=== PATIENT | female | born 1945 | race Caucasian/White ===

== ENCOUNTER 2024-08-20 20:21 | Emergency (ER) | payer MEDICARE, BC ==
[2024-08-20 20:30] VITALS: TEMP 98
[2024-08-20] MEDS: ACETAMINOPHEN TAB 500 MG TAB PO STA (21:27)
--- NOTE | 2024-08-20 21:51 | CT ---
EXAMINATION TYPE: CT brain cspine wo con CT DLP: mGycm, Automated exposure control for dose reduction was used. DATE OF EXAM: 08/20/2024 9:32 PM COMPARISON: None. CLINICAL INDICATION:Female, 79 years old with history of fall, head injury; TECHNIQUE: Brain: Multiple axial CT images of the brain were obtained without IV contrast. Cspine: Axial CT images from the skull base to the inferior aspect of T2 we obtained without intraven ous contrast. Coronal and sagittal reformatted images were also reviewed. FINDINGS: Brain: Extra-axial spaces: Trace subdural blood products are seen layering along the posterior falx. Ventricular system: Within normal limits Cerebral parenchyma: Cerebral atrophy. No acute intraparenchymal hemorrhage or mass effect. Multiple remote bilateral infarcts with encephalomalacia involving the supratentorial white matter. Remote ri ght cerebellar hemisphere infarct. Scattered hypoattenuating areas are seen within the white matter. Mass effect: No evidence of midline shift. Intracranial vasculature: Atherosclerotic calcifications of the intracranial vessels. Soft tissues: Left parietal soft tissue edema. Calvarium/osseous structures: No depressed skull fracture. Paranasal sinuses and mastoid air cells: Clear. Visualized orbits: Orbital contents are intact. Cervical spine: Fracture: None. Osseous structures: Multilevel degenerative disc disease changes with endplate spurring and disc oste ophyte complex's. Vertebral alignment: There is reversal of normal cervical lordotic curve Spinal canal/Neural Foramina: No evidence of significant spinal canal narrowing. Neck soft tissues: Prevertebral soft tissues are within normal limits. Other: The airway is patent. The lung apices are clear. IMPRESSION: CT brain: 1. Trace acute subdural blood products layering along the posterior falx. 2. Multiple remote supratentorial and right cerebellar hemisphere infarcts. CT cervical spine: 1. No evidence of cervical spine fracture. 2. Moderate multilevel degenerative disc disease. Findings were called to and discussed with ordering provider Betito on 08/20/2024 at [address] Velasco. [facility], , 08/20/2024 9:48 PM
--- NOTE | 2024-08-20 21:52 | XR ---
EXAMINATION TYPE: XR knee limited LT DATE OF EXAM: 08/20/2024 9:45 PM CLINICAL INDICATION:Female, 79 years old with history of fall, pain; [facility] COMPARISON: None. TECHNIQUE: The Left knee(s) was examined in Frontal, lateral and oblique projections. FINDINGS: No evidence of any acute osseous pathology, soft tissue swelling, or joint effusion is no astrid. Tricompartmental osteophyte formation involving the femoral condyles, tibial plateau and patella. Mo derate joint space narrowing. IMPRESSION: 1. No acute osseous pathology. 2. 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 [facility], , 08/20/2024 9:50 PM
--- NOTE | 2024-08-20 21:53 | XR ---
EXAMINATION TYPE: XR ankle limited RT DATE OF EXAM: 08/20/2024 9:45 PM CLINICAL INDICATION:Female, 79 years old with history of fall, pain; [facility] COMPARISON: None TECHNIQUE: The right ankle is imaged in frontal, lateral and oblique projections. FINDINGS: There is no evidence of acute osseous pathology. The joint spaces are well-preserved without evidenc e of subluxation or dislocation. Kager's fat pad is intact. Degenerative changes of the subtalar join t are appreciated. No radiopaque foreign bodies are identified. IMPRESSION: No evidence of acute fracture. [facility], , 08/20/2024 9:51 PM
--- NOTE | 2024-08-20 21:58 | XR ---
EXAMINATION TYPE: XR pelvis AP view DATE OF EXAM: 08/20/2024 9:52 PM CLINICAL INDICATION:Female, 79 years old with history of fall, pain; [facility] COMPARISON: None TECHNIQUE: The pelvis was examined in a single projection. FINDINGS: There is no evidence of fracture or dislocation. There is no soft tissue abnormality. No a bnormal calcifications are present. Right hip prosthesis is present and intact. IMPRESSION: No acute osseous pathology. [facility], , 08/20/2024 9:55 PM
--- NOTE | 2024-08-20 22:23 | ED ---
Fall HPI - General Chief Complaint: Fall Stated Complaint: Fall, Head Injury Time Seen by Provider: 08/20/24 20:25 Source: EMS Mode of arrival: EMS - History of Present Illness Initial Comments: 79-year-old female who presents to the emergency department from [facility] for fall out of her wheelchair. Patient has a history of CVA. She has significant contractures of her upper extremities and is wheelchair-bound. She has significant expressive aphasia. Patient hit the left side of her face on the ground and sustained a intraoral laceration. There was no reported loss of consciousness. She takes a full dose aspirin for her history of stroke. Patient was complaining of right ankle pain and some possible right wrist pain. History is difficult to obtain due to the patient's advanced speech deficit. Family at bedside states that she appears to be at her baseline. No report of any vomiting. HPI is limited. - Related Data Allergies Allergy/AdvReac Type Severity Reaction Status Date / Time latex AdvReac Itching Verified 08/20/24 20:31 Review of Systems ROS Statement: Those systems with pertinent positive or pertinent negative responses have been documented in the HPI. ROS Other: All systems not noted in ROS Statement are negative. Past Medical History History of Any Multi-Drug Resistant Organisms: None Reported Past Psychological History: No Psychological Hx Reported Past Alcohol Use History: None Reported Past Drug Use History: None Reported General Exam Limitations: physical limitation General appearance: alert, in no apparent distress Eye exam: Present: normal appearance, PERRL, EOMI. Absent: scleral icterus, conjunctival injection, periorbital swelling ENT exam: Present: other (Intraoral lip laceration measuring 1 cm on the inside of the left upper lip) Neck exam: Present: tenderness (Midline). Absent: meningismus, lymphadenopathy Respiratory exam: Present: normal lung sounds bilaterally. Absent: respiratory distress, wheezes, rales, rhonchi, stridor Cardiovascular Exam: Present: regular rate, normal rhythm, normal heart sounds. Absent: systolic murmur, diastolic murmur, rubs, gallop, clicks GI/Abdominal exam: Present: soft, normal bowel sounds. Absent: distended, tenderness, guarding, rebound, rigid Extremities exam: Present: other (Tenderness and swelling to the right ankle) Neurological exam: Present: other (Expressive aphasia, contractures of bilateral upper extremities.) Psychiatric exam: Present: flat affect Skin exam: Present: warm, dry, normal color, abrasion (To the left knee). Absent: rash Course Vital Signs 08/20/24 08/20/24 20:24 22:22 Temperature 98 F Pulse Rate 95 93 Respiratory 17 20 Rate Blood Pressure 109/71 99/62 O2 Sat by Pulse 93 L 95 Oximetry Medical Decision Making - Medical Decision Making Was pt. sent in by a medical professional or institution (, JENNIFER, [employer] SUPERVISOR, urgent care, hospital, or prison...) When possible be specific @ -Patient was sent in from [facility] Did you speak to anyone other than the patient for history (EMS, parent, family, police, friend...)? What history was obtained from this source @ -Spoke with EMS for history Did you review nursing and triage notes (agree or disagree)? Why? @ -I reviewed and agree with nursing and triage notes Were old charts reviewed (outside hosp., previous admission, EMS record, old EKG, old radiological studies, urgent care reports/EKG's, prison records)? Report findings @ -No old charts were reviewed Differential Diagnosis (chest pain, altered mental status, abdominal pain women, abdominal pain men, vaginal bleeding, weakness, fever, dyspnea, syncope, headache, dizziness, GI bleed, back pain, seizure, CVA, palpatations, mental health, musculoskeletal)? @ -Subdural, subarachnoid, cervical fracture EKG interpreted by me (3pts min.). @ -Yes and demonstrates sinus rhythm with a rate of 96. DE interval 200. QRS 84. QTc of 424. No acute ST segment elevations or depressions X-rays interpreted by me (1pt min.). @ -Yes and demonstrates no acute fractures CT interpreted by me (1pt min.). @ -Yes and demonstrates acute subdural U/S interpreted by me (1pt. min.). @ -None done What testing was considered but not performed or refused? (CT, X-rays, U/S, labs)? Why? @ -None What meds were considered but not given or refused? Why? @ -Platelets were considered Did you discuss the management of the patient with other professionals (professionals i.e. , JENNIFER, [employer] SUPERVISOR, lab, RT, psych nurse, licensed social worker, panel raiser operator, teacher, aeronautical engineering officer, pillowcase cleaner)? Give summary @ -Spoke with Dr. Dai at [facility] Was smoking cessation discussed for >3mins.? @ -No Was critical care preformed (if so, how long)? @ -Yes, 35 minutes for identification of intracranial bleed Were there social determinants of health that impacted care today? How? (Homelessness, low income, unemployed, alcoholism, drug addiction, transportation, low edu. Level, literacy, decrease access to med. care, assisted, rehab)? @ -No Was there de-escalation of care discussed even if they declined (Discuss DNR or withdrawal of care, Hospice)? DNR status @ -Yes however family wants the patient to remain a full code What co-morbidities impacted this encounter? (DM, HTN, Smoking, COPD, CAD, Cancer, CVA, ARF, Chemo, Hep., AIDS, mental health diagnosis, sleep apnea, morbid obesity)? @ -CVA with expressive aphasia Was patient admitted / discharged? Hospital course, mention meds given and route, prescriptions, significant lab abnormalities, going to OR and other pertinent info. @ -Upon arrival patient seen and evaluated in room 24. Thorough history and physical exam was performed. Patient does have identifiable facial injury. Laceration is intraoral and no bleeding at this time. Does not require repair. Unknown if the patient hit her head but she is complaining of neck pain therefore I performed a CT of the brain and cervical spine. X-rays were performed of the patient's knee and ankle. I did speak with the radiologist in regards to the CT read which shows an acute subdural. This is discussed with family. They request that the patient remain a full code. Informed them that this would require transfer to a facility with neurosurgical capabilities for which they were agreeable. Called and spoke with Dr. Dai who is the acce pting trauma surgeon at [facility]. Patient will be transferred in stable condition. COBRA forms are signed Undiagnosed new problem with uncertain prognosis? @ -No Drug Therapy requiring intensive monitoring for toxicity (Heparin, Nitro, Insulin, Cardizem)? @ -No Were any procedures done? @ -No Diagnosis/symptom? @ -Acute fall from wheelchair, acute subdural hemorrhage Acute, or Chronic, or Acute on Chronic? @ -Acute Uncomplicated (without systemic symptoms) or Complicated (systemic symptoms)? @ -Complicated Side effects of treatment? @ -No Exacerbation, Progression, or Severe Exacerbation? @ -No Poses a threat to life or bodily function? How? (Chest pain, USA, ID, pneumonia, PE, COPD, DKA, ARF, appy, cholecystitis, CVA, Diverticulitis, Homicidal, Suicidal, threat to staff... and all critical care pts) @ -Yes as patient has intracranial bleed Disposition Clinical Impression: Fall, Blunt head trauma, Subdural hemorrhage, Right ankle pain Disposition: OTHER INSTITUTION NOT DEFINED Condition: Serious Is patient prescribed a controlled substance at d/c from ED?: No Referrals: Shawn Rosenthal MD [Primary Care Provider] - 1-2 days Time of Disposition: 22:45 - Out of Hospital Transfer - Req. Specs Out of Hospital Transfer - Requested Specifics: Other Emergency Center ([facility])
[2024-08-20 23:13] LABS: ALT 15 U/L (4-34); African American GFR (CKD) >90 (>60 ml/min/1.73 sqM); Albumin 4.4 g/dL (3.5-5.0); Anion Gap 9 mmol/L; Blood Urea Nitrogen 18 mg/dL (7-17); Calcium 9.3 mg/dL (8.4-10.2); Carbon Dioxide 20 mmol/L (22-30); Chloride 111 mmol/L (98-107); Glucose 110 mg/dL (74-99); Non-African American GFR(CKD) 87 (>60 ml/min/1.73 sqM); Sodium 140 mmol/L (137-145); Total Bilirubin 0.9 mg/dL (0.2-1.3); Total Protein 7.3 g/dL (6.3-8.2)
[2024-08-20 23:14] LABS: AST 24 U/L (14-36); Potassium 4.6 mmol/L (3.5-5.1)
[2024-08-20 23:15] LABS: Alkaline Phosphatase 97 U/L (38-126)
[2024-08-20 23:18] VITALS: BP 107/71; PULSE 102; RESP 17
[2024-08-20 23:49] LABS: Basophils # (A) 0.1 k/uL (0-0.2); Basophils % (A) 1 %; Eosinophils # (A) 0.1 k/uL (0-0.7); Eosinophils % (A) 1 %; HGB 15.5 gm/dL (11.4-16.0); Lymphocytes # (A) 1.5 k/uL (1.0-4.8); Lymphocytes % (A) 10 %; MCHC 32.4 g/dL (31.0-37.0); MCV 95.8 fL (80.0-100.0); Mean Platelet Volume 9.8; Monocytes # (A) 0.9 k/uL (0-1.0); Monocytes % (A) 6 %; Neutrophils # (A) 11.9 k/uL (1.3-7.7); Neutrophils % (A) 81 %; Platelet Count 354 k/uL (150-450); RDW 12.4 % (11.5-15.5); WBC 14.6 k/uL (3.8-10.6)
== END 2024-08-20 23:17 | disposition other institution (70) ==
LOC: EC 20:21
CPT/HCPCS: 36415; 70450; 72125; 72170; 80053; 85025; 85610; 85730; 99291